=== PATIENT | female | born 1970 | race Caucasian/White ===

== ENCOUNTER 2020-10-18 12:43 | Outpatient (CLI) | payer OTHER, SELFPAY ==
--- NOTE | ~2020-10-18 | MR_ITS ---
EXAMINATION: MR cervical spine wo con EXAM DATE: 10/18/2020 14:25 INDICATION: Myelopathy. TECHNIQUE: Multi-sequential, multiplanar MR images of the cervical spine were obtained without contra st. Axial T2, axial T2 MERGE sequence. Sagittal T1, T2, T2 fat saturation images also obtained. Com parison is made to prior examination from 05/23/2007. FINDINGS: There is moderate loss of the C5-6 disc height, mild at C6-7. The vertebral body and disc heights are otherwise well maintained. The vertebral bodies are aligned in the AP dimension. There ar e no suspicious marrow signal abnormalities. The spinal cord signal intensity and intrinsic morpholog y is normal. Cervicomedullary junction is normal in appearance. Paraspinal soft tissue is unremarkabl e. Level by level evaluation: C2-C3: Disc does not extend beyond the endplate margin. Uncovertebral joint arthropathy: None. Facet joint arthropathy: Mild bilateral. Neural foraminal stenosis: No stenosis. Central canal stenosis: No stenosis. C3-C4: Disc does not extend beyond the endplate margin. Uncovertebral joint arthropathy: Mild bilateral. Facet joint arthropathy: Mild bilateral. Neural foraminal stenosis: Mild to moderate left, mild right. Central canal stenosis: No stenosis. C4-C5: Disc does not extend beyond the endplate margin. Uncovertebral joint arthropathy: Mild to moderate left, mild right. Facet joint arthropathy: Mild to moderate bilateral. Neural foraminal stenosis: Mild to moderate left. Central canal stenosis: No stenosis. C5-C6: There is a mild diffuse disc bulge. Uncovertebral joint arthropathy: Moderate bilateral. Facet joint arthropathy: Mild to moderate bilateral. Neural foraminal stenosis: Moderate bilateral. Central canal stenosis: Mild. C6-C7: There is a mild diffuse disc bulge. Uncovertebral joint arthropathy: Mild to moderate bilateral. Facet joint arthropathy: Mild to moderate bilateral. Neural foraminal stenosis: Mild right. Central canal stenosis: No stenosis. C7-T1: Disc does not extend beyond the endplate margin. Uncovertebral joint arthropathy: None. Facet joint arthropathy: Mild to moderate right, mild left. Neural foraminal stenosis: No stenosis. Central canal stenosis: No stenosis. IMPRESSION: 1. C5-C6 moderate disc disease, neural foraminal stenosis. 2. Lesser spondylosis other cervical levels. Reviewed, dictated and finalized at location A. [employer]
--- NOTE | ~2020-10-18 | MR_ITS ---
EXAMINATION: MR lumbar spine wo con DATE: 10/18/2020 14:26 INDICATION: Myelopathy with low back pain, bilateral leg pain and right leg numbness TECHNIQUE: Magnetic resonance imaging (MRI) of the lumbar spine was performed without intravenous con trast. Sequences included sagittal T2-weighted FSE, sagittal T2-weighted FS FSE, sagittal T1-weighted FSE, and axial T2-weighted FSE. COMPARISON: None FINDINGS: Approximately 12 degree lumbar levoscoliosis measured between L1 and L5. 3 mm retrolisthesis L5 on S1 . Vertebral body heights are normal. L4 laminectomy and partial L3 laminectomy. Severe disc height lo ss with right-sided predominance at L3-L4 and left-sided predominance at L5-S1, both with prominent a ssociated sclerotic and fibrovascular degenerative endplate changes. Additional more uniform severe d isc height loss at L4-L5. Mild disc desiccation and mild right-sided disc height loss at L2-L3. The c onus medullaris terminates at L1-L2. There is normal signal in the caudal spinal cord. The following disc levels are specifically discussed: T12-L1: The disc does not extend beyond the endplate margin. There is mild bilateral facet joint oste oarthritis. There is no neural foraminal stenosis. There is no central canal stenosis. L1-L2: Disc is mildly bulging. There is mild bilateral facet joint osteoarthritis. There is minimal l eft neural foraminal stenosis. There is no central canal stenosis. L2-L3: Disc is bulging with annular fissure and small central disc protrusion extends couple millimet er caudal to the level of the superior endplate of L3. There is mild left and moderate right facet sona int osteoarthritis. There is mild bilateral neural foraminal stenosis. There is mild central canal st enosis. L3-L4: Disc is bulging with superimposed small left paracentral annular fissure and disc extrusion wi th disc material extending a few millimeters cephalad and caudal to the level of the endplates. There is posterior decompression. There is mild left and moderate right facet joint osteoarthritis. There is moderate right and mild to moderate left neural foraminal stenosis. There is mild central canal st enosis along with mild narrowing of the right lateral recess. L4-L5: Annular fissure with broad-based disc extrusion extending from foraminal zone to foraminal zon e with disc material extending couple millimeters cephalad and caudal to the level of the endplates. Posterior decompression. There is mild right and mild to moderate left facet joint osteoarthritis. Th ere is moderate bilateral neural foraminal stenosis. There is no central canal stenosis. L5-S1: Annular fissure with broad-based disc extrusion extending from foraminal zone to foraminal zon e with disc material extending couple millimeters cephalad and caudal to the level of the endplates. There is mild right and moderate left facet joint osteoarthritis. There is moderate right and moderat e to severe left neural foraminal stenosis, the latter due in part to prominent L5 inferior endplate osteophyte. There is no central canal stenosis. IMPRESSION: 1. Mild lumbar levoscoliosis with severe spondylosis. 2. L4 laminectomy and partial L3 laminectomy. Reviewed, dictated and finalized at [facility]. [employer]
== END 2020-10-18 12:44 | disposition home or self-care (01) ==
PROVIDERS: Visit Provider Psychiatry & Neurology Neurology
DX: G95.9 Disease of spinal cord, unspecified (principal); M47.896 Other spondylosis, lumbar region; M50.323 Other cervical disc degeneration at C6-C7 level
CPT/HCPCS: 72141; 72148

== ENCOUNTER 2021-03-08 15:39 | Outpatient (CLI) | payer OTHER, SELFPAY ==
--- NOTE | ~2021-03-08 | MM_ITS ---
EXAMINATION: MM screening awais BI w bruce HISTORY: Screening mammogram TECHNIQUE: Craniocaudal and mediolateral oblique 3-D tomosynthesis images were obtained and synthetic 2-D images were generated. CAD analysis was submitted and interpreted. COMPARISON: 11/17/2019, 02/19/2018, 12/22/2014 bilateral digital screening mammogram examinations BREAST PARENCHYMAL COMPOSITION: There are scattered areas of fibroglandular density. FINDINGS: There is interval increased density in the lower left breast on MLO view compared to prior examinations. Diagnostic left mammogram is recommended, with ultrasound if required. Otherwise there is no evidence of suspicious mass, calcification, or architectural distortion to sugg est malignancy in either breast. There has been no other suspicious interval change. IMPRESSION: 1. New asymmetric increased density in the lower left breast on screening MLO view 2. Diagnostic left mammogram is recommended, with ultrasound if required BI-RADS Category 0: Incomplete: Needs additional imaging evaluation. Reviewed, dictated and finalized at location A. IMPRESSION: 1. New asymmetric increased density in the lower left breast on screening MLO v iew 2. Diagnostic left mammogram is recommended, with ultrasound if required BI-RADS Category 0: Incomplete: Needs additional imaging evaluation.
== END 2021-03-08 15:40 | disposition home or self-care (01) ==
LOC: ANHIMG 15:45
PROVIDERS: Visit Provider Obstetrics & Gynecology
DX: Z12.31 Encounter for screening mammogram for malignant neoplasm of breast (principal); R92.8 Other abnormal and inconclusive findings on diagnostic imaging of breast
CPT/HCPCS: 77063; 77067